=== PATIENT | female | born 1945 | race Caucasian/White ===

== ENCOUNTER 2016-11-06 07:55 | Outpatient (CLI) ==
--- NOTE | 2016-11-07 08:28 | MAMMO ---
EXAM: Digital screening mammogram HISTORY: Screening COMPARISON: 03/15/2014 FINDINGS: Digital MLO and CC views of the right and left breast were performed. There are scatter ed fibroglandular densities. Stable benign intramammary lymph node on the right. There is no evide nce for mass, asymmetry, distortion, or suspicious calcifications in either breast. IMPRESSION: 1. No evidence of malignancy in the right or left breast. 2. Annual screening mammogram is recommended in one year. BIRADS category 2, benign
== END 2016-11-06 07:56 | disposition home or self-care (01) ==
LOC: RAD 07:55
PROVIDERS: ATTEND Family Medicine
DX: Z12.31 Encounter for screening mammogram for malignant neoplasm of breast (principal)

== ENCOUNTER 2017-11-24 08:52 | Outpatient (CLI) ==
--- NOTE | 2017-11-24 10:17 | DEXA ---
EXAM: Bone densitometry. History: Osteoporosis. Findings: Evaluation of the lumbar spine reveals a total bone mineral density of 1.200 grams per centimeter squ ared with T-score of 0.2. Evaluation of the left hip reveals a total bone mineral density of 1.034 grams per centimeter squared with T-score of 0.2. Evaluation of the right hip reveals a total bone mineral density of 1.034 grams per centimeter square d with T-score of 0.2. Impression: Normal bone mineral density of the lumbar spine and bilateral hips
--- NOTE | 2017-11-25 09:39 | MAMMO ---
EXAM: Bilateral digital screening mammogram (2-D and 3-D) History: Screening Comparison: Bilateral mammogram 11/06/2016 Findings: MLO and CC views of bilateral breasts demonstrate scattered fibroglandular breast parenchy ma. CAD was reviewed by the radiologist. Tomosynthesis was performed. Stable benign bilateral jessie st calcifications. There are no dominant masses, no suspicious microcalcifications and no architectu ral distortions Impression: Benign stable mammogram. Recommend followup routine screening mammography in 1 year. BIRADS 2
== END 2017-11-24 08:53 | disposition home or self-care (01) ==
LOC: RAD 08:52
PROVIDERS: ATTEND Family Medicine
DX: Z12.31 Encounter for screening mammogram for malignant neoplasm of breast (principal); Z78.0 Asymptomatic menopausal state; M85.80 Other specified disorders of bone density and structure, unspecified site; M19.90 Unspecified osteoarthritis, unspecified site
CPT/HCPCS: 77067